=== PATIENT | male | born 1950 | race Caucasian/White ===

== ENCOUNTER → 2021-12-06 07:42 | Day surgery (SDC) | payer MEDICARE, OTHER, SELFPAY ==
[2021-12-05 13:05] VITALS: BMI 24.3
[2021-12-06] VITALS (7 sets, daily range): BP systolic 126–183; BP diastolic 74–98; PULSE 77–102; RESP 16–17; TEMP 36.6–36.7; O2SAT 96–100; BMI 24.3
--- NOTE | 2021-12-06 | DI.RAD.S_ITS ---
PROCEDURE: XR KUB INDICATIONS: Left nephrolithiasis TECHNIQUE: One view of the abdomen acquired. COMPARISON: [facility], , XR ABDOMEN 1V, 10/08/2021, 8:28. FINDINGS: Surgical changes and devices: None. Bowel: Bowel gas pattern is normal. Soft tissues: Bilateral renal stones present as before, approximately 3 projecting over the right kidney, 5 projecting over the left kidney. Largest stone on the right is 3 millimeters at the upper kidney, largest left-sided stone is 3-4 millimeters at the upper kidney. The amount of stones may have increased since the prior exam but overlying stool and bowel gas makes evaluation difficult. Several calcifications project over the pelvis as before. A radiopaque marker projects over both images, likely external to the patient/on the imaging equipment. Bones: No suspicious bony lesions. IMPRESSION: 1. Bilateral kidney stones redemonstrated. 2. Calcifications projecting over the pelvis are present as before, indeterminate for phleboliths or ureteral stones. CT could be obtained if clinically indicated. Dictated by: Jean Carlos Draper M.D. on 12/06/2021 at 8:41 Approved by: Jean Carlos Draper M.D. on 12/06/2021 at 8:49
[2021-12-06] MEDS: LACTATED RINGERS 1,000 ML 42 ML IV ×2 (09:03→10:28)
--- NOTE | 2021-12-06 09:10 | PM.HP.1 ---
History of Present Illness History of Present Illness Date Patient Seen: 12/06/21 Time Patient Seen: 09:11 Chief complaint: SDC Narrative: Hamzah is a 71-year-old male with a long history of recurrent calcium nephrolithiasis. Metabolic stone risk evaluation identified suboptimal free water consumption and hypocitraturia. Risk factors have been addressed and stone burden has remained stable. He recently retired and plans on extensive travel in the coming months to several years and desires stone free status. Additionally, he has experienced intermittent migrating bilateral flank pain particularly when he has been physically active. KUB 12/06/2021 demonstrates a cluster of at least 4 calculi measuring up to 6 mm in left upper pole and a 4-5 mm calculus in the left lower pole. Additionally there are nonobstructive right renal calculi. Patient History Medical History Bilateral nephrolithiasis BPH w urinary obs/LUTS Calcium nephrolithiasis GERD (gastroesophageal reflux disease) History of elevated PSA History of nephrolithiasis Hx of nephrolithotomy with removal of calculi Kidney stones Scleroderma Surgical History (Updated 11/12/21 @ 14:51 by Kasey Mckeon RN) H/O cardiac radiofrequency ablation (2019) H/O foot surgery H/O vasectomy History of lung biopsy (1997) History of surgery (2017) History of surgery (2020) Vasectomy status Family & Social History Family History Father Coronary artery disease Diabetes mellitus Hearing impairment Social History: household members spouse Tobacco & Substance use: Smoking Status Never smoker alcohol intake current alcohol intake frequency 0-2 drinks per day Substance Use Type does not use Meds Home Medications and Allergies Home Medications Medication Instructions Recorded Confirmed Type aspirin 81 mg tablet,delayed 81 mg PO DAILY 06/22/20 12/06/21 History release (Adult Low Dose Aspirin) coenzyme Q10 75 mg capsule (Ultra 75 mg PO DAILY 06/22/20 12/06/21 History CoQ10) glucosamine sulfate 1,500 mg oral mg PO 06/22/20 10/29/21 History powder packet omeprazole 20 mg capsule,delayed 20 mg PO DAILY 06/22/20 12/06/21 History release turmeric root extract 538 mg 538 mg PO DAILY 06/22/20 12/06/21 History capsule cetirizine 10 mg tablet (Aller-Stefano) 5 mg PO DAILY PRN Allergies 06/28/20 12/06/21 History tamsulosin 0.4 mg capsule 0.4 mg PO BEDTIME #90 caps 08/21/21 12/06/21 Rx potassium citrate 15 mEq (1,620 15 meq PO BID #180 tabs 11/14/21 Rx mg) tablet,extended release Allergies Allergy/AdvReac Type Severity Reaction Status Date / Time No Known Drug Allergies Allergy Verified 12/06/21 08:29 Review of Systems Review of Systems ROS: Yes All systems reviewed with the patient and are negative except as otherwise documented Exam Vital Signs (past 8 hours): - 12/06/21 08:35 Temperature 98 F Pulse Rate 102 H Respiratory Rate 16 Blood Pressure 183/98 H Pulse Oximetry 100 Oxygen Delivery Method Room Air Oxygen Delivery Method Room Air Narrative Exam Narrative: He is a well-developed, well-nourished male in no current distress. Head/neck-sclera clear and pupils are round equal bilaterally. Chest-equal nonlabored expansion bilaterally. Heart-normal sinus rhythm. Assessment & Plan Assessment & Plan narrative: Assessment: 1. Bilateral nephrolithiasis. 2. History of recurrent calcium nephrolithiasis. Plan: 1. Discussion informed consent today for left extracorporeal shockwave lithotripsy. Common side effects, possible complications, perioperative limitations/restrictions, and reasonable expectations of outcomes and recovery have been discussed and explained. He had no further clarifying questions or concerns and indicates a desire to proceed as planned today. Time Spent With Patient Critical Care time: I spent a total of [] minutes of critical care time on this patient's care today; this time is exclusive of procedural time.
--- NOTE | 2021-12-06 09:14 | PM.PREOP ---
Pre-operative Note COVID-19 Criteria for continued procedure: Possibility delay results in more complex future surgery or treatment, Continuing or worsening of significant or severe pain, Delay expected to result in less-positive ultimate med/surg outcome and Non-surgical alternatives not available or appropriate per current SOC Interval Note History & Physical reviewed/Exam performed by Physician: Yes Changes to H&P: No
[2021-12-06] MEDS: FAMOTIDINE 20 MG/2 ML VIAL IV (09:18)
--- NOTE | 2021-12-06 09:43 | SUR.OPER ---
Supine on ESWL bed, head on pillow, arms beside patient at <90 degrees abduction, legs uncrossed, towels supporting bilateral wrists, gel pad under right elbow and bilateral heels. Wedge under knees.
--- NOTE | 2021-12-06 10:12 | P.OP_ITS ---
Operative Date/Time/Diagnoses Date of procedure: 12/06/21 Time of procedure: 10:13 Pre-op diagnosis: Left nephrolithiasis Post-op diagnosis: same Procedure & Clinicians Procedure: 1. Left extracorporeal shockwave lithotripsy (maximal power level 7.5 x 1500 shocks). Same procedure as scheduled: Yes Indications: 1. Multiple left nephrolithiasis. Surgeon: Trista Pratt Anesthesia Type: General Operative Notes Findings: Index upper lower left nephrolithiasis unchanged in position compared to preoperative imaging. Closure Type: not applicable Specimen(s): none sent Estimated Blood Loss (mL): 0 Blood products transfused: none Procedure in detail: The patient was positioned supine and administered general anesthesia. The above-described calculi, beginning with the upper pole cluster, were localized in the X, Y, and Z plane. Lithotripsy was then commenced at minimal power level for 200 shocks. A 2 minute pause was then conducted. Lithotripsy was then restarted and the power level was gradually increased to maximal power level of 7.5. After 1000 shocks there was excellent radiographic evidence of stone comminution of the left upper pole cluster. Next, the left lower pole cluster was localized in the X, Y, and Z plane. Lithotripsy was then commenced and a t otal of 500 shocks were delivered in this area. Again, with excellent radiographic evidence of stone comminution. The treatment was felt as total shock count of 1500. The patient was then awakened, transferred to [facility], and transferred to recovery in stable condition. Complications: none Post-operative Condition: stable Disposition: PACU Plan for aftercare: Discharge home.
--- NOTE | 2021-12-06 10:55 | SUR.PHASEII ---
Dr. Pratt spoke with pt at length at bedside, pt ready to go, left unit in stable condition.
[2021-12-23 08:29] LABS: Ca oxalate dihydrate 10 % (.); Ca oxalate monohydr 90 % (.)
== END | disposition home or self-care (01) ==
PROVIDERS: PCP Family Medicine; Referring Provider Specialist; Visit Provider Specialist
PROC: (CPT 50590; principal; 2021-12-06 09:15)
DX: N20.0 Calculus of kidney (principal); N40.1 Benign prostatic hyperplasia with lower urinary tract symptoms; N13.8 Other obstructive and reflux uropathy
CPT/HCPCS: 50590; 74018; 82365; J1100; J2250; J2405; J2704; J3010

== ENCOUNTER 2021-12-23 06:48 | Day surgery (SDC) | payer MEDICARE, OTHER, SELFPAY ==
[2021-12-19 15:04] VITALS: BMI 24.3
--- NOTE | 2021-12-23 | DI.RAD.S_ITS ---
PROCEDURE: XR KUB INDICATIONS: Right nephrolithiasis TECHNIQUE: One view of the abdomen acquired. COMPARISON: [facility], , XR KUB, 12/06/2021, 7:51. FINDINGS: Surgical changes and devices: None. Bowel: Bowel gas pattern is normal. Soft tissues: A few small calcifications are seen projecting over the kidneys bilaterally, the largest of which measures up to 4 mm in size at the inferior pole of the right kidney. Stable calcifications projecting over the pelvis may represent phleboliths. Visualized solid organ contours appear normal in size. Bones: No suspicious bony lesions. IMPRESSION: Bilateral renal calculi do not appear significantly changed. Dictated by: Jean Carlos Bradfodr M.D. on 12/23/2021 at 7:48 Approved by: Jean Carlos Bradford M.D. on 12/23/2021 at 7:50
[2021-12-23 07:09] VITALS: BP 165/93; PULSE 86; RESP 16; TEMP 37; O2SAT 100; BMI 24.3
[2021-12-23] MEDS: LACTATED RINGERS 1,000 ML 100 ML IV (07:28)
--- NOTE | 2021-12-23 07:39 | PM.PREOP ---
Pre-operative Note COVID-19 Criteria for continued procedure: Possibility delay results in more complex future surgery or treatment, Continuing or worsening of significant or severe pain, Deterioration of the patient's condition or overall health, Delay expected to result in less-positive ultimate med/surg outcome and Non-surgical alternatives not available or appropriate per current SOC Interval Note History & Physical reviewed/Exam performed by Physician: Yes Changes to H&P: No
[2021-12-23] MEDS: FUROSEMIDE 40 MG/4 ML VIAL 20 MG IV (08:00)
--- NOTE | 2021-12-23 08:08 | SUR.OPER ---
Supine on padded lithotripsy bed, head on pillow, arms padded at <90 degrees abduction, legs uncrossed feet on gel pad.
--- NOTE | 2021-12-23 08:40 | P.OP_ITS ---
Operative Date/Time/Diagnoses Date of procedure: 12/23/21 Time of procedure: 08:40 Pre-op diagnosis: 1. Multiple right renal calculi. 2. History of renal colic. Post-op diagnosis: same Procedure & Clinicians Procedure: 1. Right extracorporeal shockwave lithotripsy (maximal power level 7.0 times 1500 shocks). Same procedure as scheduled: Yes Indications: 1. Multiple right renal calculi. 2. History of renal colic. Surgeon: Trista Pratt Click Yes if Unassisted: Yes Anesthesia Type: General Operative Notes Findings: 1. A dominant 6 mm calculus located in an upper pole location (700 shocks). 2. A cluster of calculi measuring up to 3 mm located in an interpolar location (300 shocks). 3. A 4-5 mm calculus located a lower pole calyx (500 shocks). Closure Type: not applicable Specimen(s): none sent Estimated Blood Loss (mL): 0 Blood products transfused: none Procedure in detail: The patient was positioned supine was administered general anesthesia. The above described upper pole calculus was then localized in the X, Y, and Z plane. Lithotripsy was then commenced at minimal power level and gradually increased to maximal power level of 7.0. Total of 700 shocks were delivered to the calculus with excellent radiographic evidence of stone comminution. Next, localization was performed on the interpolar collection of calculi. Lithotripsy was then commenced and treatment progress monitored as indicated with fluoroscopy. Total of 300 shocks were delivered with excellent evidence of stone comminution radiographically. Next, a 4-5 mm lower pole calculus was localized in the X, Y, and Z plane. Lithotripsy was again commenced and treatment progress was assess periodically with fluoroscopy as needed. At 500 shocks there is no radiographically significant evidence of residual stone fragment. Treatment was then halted. The patient was then awakened, transferred to [facility], and transported recovery in stable condition. Complications: none Post-operative Condition: stable Disposition: PACU Plan for aftercare: Discharge home.
[2021-12-23 08:49] VITALS: BP 156/89; PULSE 75; RESP 16; TEMP 36.4; O2SAT 97
[2021-12-23 08:54] VITALS: BP 148/76; PULSE 16; RESP 60
[2021-12-23 09:00] VITALS: BP 149/76; PULSE 60; RESP 16; TEMP 36.4; O2SAT 98
[2021-12-23] MEDS: OXYCODONE/ACETAMINOPHEN 5/325 TABLET 1 TAB PO (09:06)
[2021-12-23 09:13] VITALS: BP 153/78; PULSE 60; RESP 18; TEMP 36.3; O2SAT 97
[2021-12-23 09:45] VITALS: BP 160/91; PULSE 68; RESP 16; TEMP 36.3; O2SAT 98
== END 2021-12-23 09:50 | disposition home or self-care (01) ==
PROVIDERS: PCP Family Medicine; Referring Provider Specialist; Visit Provider Specialist
PROC: (CPT 50590; principal; 2021-12-23 07:45)
DX: N20.0 Calculus of kidney (principal); N40.1 Benign prostatic hyperplasia with lower urinary tract symptoms; N13.8 Other obstructive and reflux uropathy; R33.9 Retention of urine, unspecified; K21.9 Gastro-esophageal reflux disease without esophagitis; Z87.442 Personal history of urinary calculi
CPT/HCPCS: 50590; 00873; 51702; 74018; 82962; J1940; J2250; J2405; J2704; J3010

== ENCOUNTER → 2021-12-25 16:18 | Outpatient (CLI) | payer MEDICARE, OTHER, SELFPAY ==
[2021-12-30 10:07] LABS: Ca oxalate monohydr 100 % (.); Size 3x3 mm (.)
== END ==
PROVIDERS: PCP Family Medicine; Visit Provider Specialist
DX: N20.0 Calculus of kidney (principal); R33.9 Retention of urine, unspecified
CPT/HCPCS: 51798; 82365